=== PATIENT | female | born 1980 | race Caucasian/White ===

== ENCOUNTER → 2018-02-09 | Outpatient (CLI) | payer MEDICARE, OTHER ==
[2018-02-09 19:00] LABS: Appearance, Urine Turbid (Clear); Bilirubin, Urine Neg (Neg); Blood, Urine Neg (Neg); Color, Urine Yellow (P-Yellow); Glucose Qualitative, Urine Neg (Neg); Ketones, Urine Neg (Neg); Leukocyte Esterase, Urine Neg (Neg); Nitrite, Urine Neg (Neg); Protein, Urine Neg (Neg); Specific Gravity, Urine 1.015 (1.003-1.022); Urobilinogen, Urine NORM (Normal)
[2018-02-09 19:21] LABS: Bacteria Not Seen /hpf; Red Blood Cells, Urine Not Seen /hpf (0-2); Squamous Epithelial Cells Few /hpf (Few); White Blood Cells, Urine 0-2 /hpf (0-5)
== END ==
LOC: LAB 15:45
PROVIDERS: Nurse Practitioner Family
DX: R30.0 Dysuria (principal)
CPT/HCPCS: 81001

== ENCOUNTER → 2022-01-17 | Outpatient (CLI) | payer MEDICARE, OTHER | END | disposition home or self-care (01) | LOC: LAB SHORT 13:15 | DX: E53.8 Deficiency of other specified B group vitamins (principal) | CPT/HCPCS: 82607; 82746 ==

== ENCOUNTER → 2022-01-23 | Outpatient (CLI) | payer MEDICARE, OTHER ==
[2022-01-27 15:08] LABS: HPV 16 Negative (Negative); HPV 18 Negative (Negative); HPV OTHER HR TYPES Negative (Negative)
== END ==
LOC: LAB SHORT 11:45 → LAB 11:45
PROVIDERS: Physician Assistant Medical
DX: Z12.4 Encounter for screening for malignant neoplasm of cervix (principal)
CPT/HCPCS: 87624; G0145

== ENCOUNTER → 2022-02-12 | Outpatient (CLI) | payer MEDICARE, OTHER ==
[2022-02-12 14:22] LABS: Source, Urine Clean Catch
[2022-02-12 15:39] LABS: Bilirubin, Urine Neg (Neg); Blood, Urine Neg (Neg); Glucose Qualitative, Urine Neg (Neg); Ketones, Urine Neg (Neg); Leukocyte Esterase, Urine Neg (Neg); Nitrite, Urine Neg (Neg); Protein, Urine Neg (Neg); Specific Gravity, Urine 1.015 (1.003-1.022); Urobilinogen, Urine NORM (Normal)
[2022-02-12 15:50] LABS: Appearance, Urine Clear (Clear); Color, Urine Pale Yellow (P-Yellow)
[2022-02-12 17:40] LABS: Creatinine, Urine Random 44.7 mg/dL (27.00-270.00)
[2022-02-12 17:42] LABS: Protein, Urine Random 5.1 mg/dL (0.0-11.9); Protein/Creat Ratio, Ur Random 0.1
== END ==
LOC: LAB SHORT 11:40
PROVIDERS: Internal Medicine Nephrology
DX: N17.9 Acute kidney failure, unspecified (principal); D72.819 Decreased white blood cell count, unspecified; I95.9 Hypotension, unspecified
CPT/HCPCS: 81003; 82570; 84156

== ENCOUNTER 2024-06-07 09:42 | Observation (INO) | payer MEDICARE, OTHER ==
[~2024-06-07] VITALS: Ht 157.5 cm; Wt 50.4 kg
[2024-06-07] MEDS ORDERED: LORAZEPAM0.5 MG PO (10:54)
[2024-06-07] MEDS ORDERED: DONEPEZIL HCL5 M2 PO (10:54)
[2024-06-07] MEDS ORDERED: CITALOPRAM HBR20 M9 PO (10:54)
[2024-06-07] MEDS ORDERED: EUTHYROX125 MC1 PO (10:55)
[2024-06-07] MEDS ORDERED: CALCITRIOL0.25 MC4 PO (10:55)
[2024-06-07] MEDS ORDERED: LORazepam 1 MG Tab PO ONE (12:15)
[2024-06-07] MEDS ORDERED: Acetaminophen 325 MG TABLET PO PRN (14:05)
--- NOTE | 2024-06-07 15:01 | NUR ---
Because the patient was experiencing anxiety and therapeutic alliance had already been established, I visited the patient. I spent over one hour with the patient and her caregiver Jacinto in ER5. She voices that she is scared, doesn't want to be here (in the hospital) and that she wants to go home with Jacinto. I provide lots of distraction from her fears while also reassuring the patient of her safety and positive intent of the medical staff. The patient tells me stories about her, pets growing up, her participation in the [employer] and the different foods that she enjoys. Patient is a resident at Jacinto's foster [facility] in [place]. I provided a calming presence and therapeutic listening and gentle budget counselor until her parents arrive from [facility]. Patient responded well and showed signs of reduced stress (spiritual care along with the Ativan given by the ER staff brought reduced stress). I will remain available.
[2024-06-07 15:42] LABS: BASOPHILS ABSOLUTE AUTO 0.03 K/mm3 (0.00-0.23); BASOPHILS PERCENT AUTO 1 % (0-2); EOSINOPHILS ABSOLUTE AUTO 0.07 K/mm3 (0.00-0.68); EOSINOPHILS PERCENT AUTO 2 % (0-6); Hematocrit 39.6 % (33.0-51.0); Hemoglobin 13.3 g/dL (11.5-16.0); IMMATURE GRAN ABSOLUTE AUTO 0.01 K/mm3 (0.00-0.10); IMMATURE GRAN PERCENT AUTO 0 % (0-1); LYMPHOCYTES ABSOLUTE AUTO 1.33 K/mm3 (0.84-5.20); LYMPHOCYTES PERCENT AUTO 29 % (21-46); MONOCYTES ABSOLUTE AUTO 0.28 K/mm3 (0.16-1.47); MONOCYTES PERCENT AUTO 6 % (4-13); Mean Corpuscular HGB 31.7 pg (26.0-34.0); Mean Corpuscular HGB Conc 33.6 g/dL (31.5-36.5); Mean Corpuscular Volume 94 fL (80-100); Mean Platelet Volume 11.5 fL (9.1-12.4); NEUTROPHILS ABSOLUTE AUTO 2.88 K/mm3 (1.96-9.15); NEUTROPHILS PERCENT AUTO 63 % (41-73); Platelet Count 183 K/mm3 (150-400); RDW Coefficient Variation 13.6 % (11.7-14.2)
[2024-06-07 15:56] LABS: International Normalized Ratio 1.07; Prothrombin Time Results 11.4 Sec (9.7-11.5)
[2024-06-07 16:06] LABS: Albumin, Blood 3.3 g/dL (3.4-5.0); Albumin/Globulin Ratio 0.9 (0.8-1.8); Bilirubin, Total 0.3 mg/dL (0.1-1.0); Bun/Creatinine Ratio 14.5 (12.0-20.0); Calcium, Blood 8.7 mg/dL (8.5-10.1); Creatinine, Blood 0.97 mg/dL (0.40-1.00); Globulin, Blood 3.6 g/dL (2.2-4.0); Potassium, Blood 4.2 mmol/L (3.5-5.5); Total Protein, Blood 6.9 g/dL (6.4-8.2)
--- NOTE | 2024-06-07 17:17 | NUR ---
A follow-up visit today as the patient gets used to a new room and new people in the room. Patient states that she is scared again. I provide a calming presence, anxiety containment and reassurance of her safety. Patient responded well and showed signs of peace.
[2024-06-07 17:45] VITALS: BP 100/70
--- NOTE | 2024-06-07 19:22 | NUR ---
PT ARRIVED TO ROOM 308 VIA W/C FROM ED AT 1630 WITH CAREGIVER PRESENT. ADMISSION COMPLETED WITH CAREGIVERS HELP. HE REPORTS SHE GOES TO THE BATHROOM MULTIPLE TIMES PER DAY. CAN BE MORE CONFUSED AT NIGHT. PT HAS AN ARM TREMOR WITH RED HANDS WHICH CAREGIVER STATES ISN'T NEW. REPETATIVE WITH QUESTIONS AND COMMENTS. R EAR WITH HEMATOMA. REPORT GIVEN TO ONCOMING SHIFT.
[2024-06-07 19:56] VITALS: BP 95/63
[2024-06-07] MEDS ORDERED: LORazepam 0.5 MG Tab PO SCH (21:00)
[2024-06-07] MEDS ORDERED: Donepezil HCl 5 MG Tab PO SCH (21:00)
[2024-06-08 02:46] VITALS: BP 101/65
[2024-06-08] MEDS ORDERED: Levothyroxine Sodium 0.125 MG Tab PO SCH (06:00)
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
[2024-06-08 08:36] VITALS: BP 102/64
[2024-06-08] MEDS ORDERED: Citalopram Hydrobromide 20 MG Tab PO SCH (09:00)
[2024-06-08] MEDS ORDERED: Calcitriol 0.25 MCG Cap PO SCH (09:00)
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
[2024-06-08] MEDS ORDERED: Acetaminophen325 M1 PO (12:27)
--- NOTE | 2024-06-08 13:56 | NUR ---
DISCHARGE NOTE PT DISCHARGED HOME AT APPROX 1350. PT'S CAREGIVER PROVIDED W/ VERBAL AND WRITTEN INSTRUCTIONS AND REPORTED UNDERSTANDING. PT A&O TO SELF, PERSON, AND YEAR, VSS, AMB W/ ASSIST, TOLERATING PO, VOIDING, AND DENIED PAIN. BELONGINGS WERE RETURNED ALONG W/ DISCHARGE PACKET TO CAREGIVER. PT ESCOURTED OUT VIA W/C BY CAREGIVER.
== END 2024-06-08 13:58 | disposition home or self-care (01) ==
LOC: ER 09:42 → MEDS 09:43 → ENPENDDIS 06-08 11:56 → MEDS 06-08 13:58
PROVIDERS: ADMIT Internal Medicine
DX: S06.5XAA Traumatic subdural hemorrhage with loss of consciousness status unknown, initial encounter (principal); S01.311A Laceration without foreign body of right ear, initial encounter; E03.9 Hypothyroidism, unspecified; Q90.9 Down syndrome, unspecified; Z79.899 Other long term (current) drug therapy; W10.9XXA Fall (on) (from) unspecified stairs and steps, initial encounter
CPT/HCPCS: 36415; 70450; 80053; 83605; 85025; 85610; 87040; 99283-25; A9270; G0378

== ENCOUNTER 2024-06-14 19:13 | Emergency (ER) | payer MEDICARE, OTHER ==
[~2024-06-14] VITALS: Ht 149.9 cm; Wt 49.9 kg
[~2024-06-14 19:13] MED LIST: Acetaminophen325 M1 PO; CALCITRIOL0.25 MC4 PO; CITALOPRAM HBR20 M9 PO; DONEPEZIL HCL5 M2 PO; EUTHYROX125 MC1 PO; LORAZEPAM0.5 MG PO
[2024-06-14 19:35] LABS: BASOPHILS ABSOLUTE AUTO 0.05 K/mm3 (0.00-0.23); BASOPHILS PERCENT AUTO 1 % (0-2); EOSINOPHILS ABSOLUTE AUTO 0.06 K/mm3 (0.00-0.68); EOSINOPHILS PERCENT AUTO 2 % (0-6); Hematocrit 39.4 % (33.0-51.0); Hemoglobin 12.9 g/dL (11.5-16.0); IMMATURE GRAN ABSOLUTE AUTO 0.01 K/mm3 (0.00-0.10); IMMATURE GRAN PERCENT AUTO 0 % (0-1); LYMPHOCYTES ABSOLUTE AUTO 1.32 K/mm3 (0.84-5.20); LYMPHOCYTES PERCENT AUTO 34 % (21-46); MONOCYTES ABSOLUTE AUTO 0.29 K/mm3 (0.16-1.47); MONOCYTES PERCENT AUTO 7 % (4-13); Mean Corpuscular HGB 30.9 pg (26.0-34.0); Mean Corpuscular HGB Conc 32.7 g/dL (31.5-36.5); Mean Corpuscular Volume 95 fL (80-100); Mean Platelet Volume 11.3 fL (9.1-12.4); NEUTROPHILS ABSOLUTE AUTO 2.18 K/mm3 (1.96-9.15); NEUTROPHILS PERCENT AUTO 56 % (41-73); Platelet Count 186 K/mm3 (150-400); RDW Coefficient Variation 13.5 % (11.7-14.2); RDW Standard Deviation 47.5 fL (35.1-46.3); Red Blood Cell Count 4.17 M/mm3 (3.80-5.20); White Blood Cell Count 3.91 K/mm3 (4.00-11.30)
[2024-06-14] MEDS ORDERED: NS 1,000 ML IV SCH (19:40)
[2024-06-14 19:54] LABS: Magnesium, Blood 2.2 mg/dL (1.6-2.4)
[2024-06-14 19:55] LABS: Albumin/Globulin Ratio 0.8 (0.8-1.8); Bilirubin, Total 0.3 mg/dL (0.1-1.0); Bun/Creatinine Ratio 13.3 (12.0-20.0); Calcium, Blood 8.6 mg/dL (8.5-10.1); Creatinine, Blood 0.98 mg/dL (0.40-1.00); Globulin, Blood 3.8 g/dL (2.2-4.0); Potassium, Blood 4.1 mmol/L (3.5-5.5); Total Protein, Blood 6.8 g/dL (6.4-8.2)
[2024-06-14] MEDS ORDERED: levETIRAcetam 1,500 MG in NS 100 ML IV ONE (22:10)
[2024-06-14] MEDS ORDERED: LORazepam 1 MG Tab PO ONE (22:25)
[2024-06-14 23:00] VITALS: BP 105/68
== END 2024-06-14 23:45 | disposition short-term general hospital (02) ==
LOC: ER 19:13
PROVIDERS: Emergency Medicine
DX: I62.01 Nontraumatic acute subdural hemorrhage (principal); G30.9 Alzheimer's disease, unspecified; F02.80 Dementia in other diseases classified elsewhere, unspecified severity, without behavioral disturbance, psychotic disturbance, mood disturbance, and anxiety; E03.9 Hypothyroidism, unspecified; Z79.890 Hormone replacement therapy; Z79.899 Other long term (current) drug therapy
CPT/HCPCS: 70450; 80053; 83735; 83880; 85025; 93005; 93010; 96361; 96365; 99285-25; A9270; J1953; J7030